=== PATIENT | female | born 1960 | race Caucasian/White ===

== ENCOUNTER 2022-05-17 14:13 | Inpatient (IN) ==
[2022-05-17] MEDS ORDERED: ASPIRIN CHEW 324 MG PO STA (14:33)
[2022-05-17] MEDS ORDERED: ALUMINUM/MAGNESIUM SUSP 30 ML UDC PO STA (14:36)
--- NOTE | 2022-05-17 14:36 | Emergency Department Note ---
Impression & Plan Acute non-ST elevation myocardial infarction (NSTEMI), Chest pain, Elevated troponin I level, Abnormal EKG ED Provider Note NAME: TRI SULLIVAN AGE: 61 SEX: F : 1960 ARRIVES VIA: Walk-In INFORMANT: Patient, ED PROVIDER(S): Joby Willoughby DO CHIEF COMPLAINT: Chest pain HPI: The patient is a 61-year-old female who presented to the emergency department for an evaluation of chest pain. The patient describes anterior chest pain which began yesterday. The patient noticed chest pain while she was walking. She states she might of been exerting herself somewhat but not overly. She states she thought initially it was reflux and she noticed the pressure in her chest. She had an episode of emesis. 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 She was told to follow-up with her primary care physician. She went to see her primary care physician today after she had another episode which was associated with exertion. She had an abnormal EKG and was advised to go to the emergency department for further evaluation. The patient denies having any swelling in her legs. She denies having any difficulty breathing. She has no chest pain at this time. She has no history of coronary artery disease or tobacco use. The patient states she last had pain at approximately 9:00 this morning. ROS: See above HPI for pertinent positives & negatives. A total of 10 systems reviewed and were otherwise negative. PAST MEDICAL HISTORY: See Below PAST SURGICAL HISTORY: See Below FAMILY HISTORY: See Below SOCIAL HISTORY: See Below HOME MEDICATIONS: See Below ALLERGIES: See Below VITALS: See Below PHYSICAL EXAMINATION: GENERAL: Patient is awake alert in no acute distress patient is resting comfortably and showing no signs of anxiety EYES: The conjunctivae are clear. The pupils are round and reactive. EARS, NOSE, MOUTH AND THROAT: The nose is without any evidence of any deformity. NECK: The neck is nontender and supple. RESPIRATORY: Normal respiratory effort is noted there is no evidence of wheezing rhonchi or rales CARDIOVASCULAR: Regular rate and rhythm noted there no murmurs rubs or gallops normal S1 normal S2. GASTROINTESTINAL: The abdomen is soft. Abdomen is nontender. MUSCULOSKELETAL/EXTREMITIES: There is no evidence of gross deformity full range of motion is noted in the hips and shoulders. SKIN: There is no obvious evidence of any rash. There are no petechiae, pallor or cyanosis noted. NEUROLOGIC: Patient is awake alert and oriented x3 MEDICAL DECISION MAKING: The patient is a 61-year-old female who has a no significant past medical history for coronary artery disease who presented to the emergency department for an evaluation of chest pain. The patient describes anterior chest pain which was exertional. She did have 1 episode this morning. She was seen initially at the school nurse while she was at work yesterday and then seen by her family doctor today. Given her symptoms she had an EKG done at the primary care physician's office. This was found to be abnormal and the patient was advised to come to the emergency department. In the emergency department the patient was treated with aspirin and Maalox. She was also started on heparin when her troponin was found to be elevated. EKG does appear to be consistent with ischemia with diffuse T wave inversions. She was not tachycardic or hypoxic. She had no shortness of breath. She was pain-free on my evaluation. I discussed her condition with the [facility] handkerchief cutter. An echocardiogram was ordered. I also discussed her case with the on-call [facility] hospitalist group. They have agreed to evaluate the patient in the emergency department for further management and disposition. Triage Nursing notes reviewed. Prior medical records reviewed Vital Signs: reviewed and remarkable for no significant abnormalities Differential diagnosis: Cardiac ischemia, aortic dissection, pulmonary embolism, pneumothorax, pneumonia, pericarditis, myocarditis, esophageal rupture, GERD, cholecystitis, pancreatitis, musculoskeletal, as well as other pathologies. ER treatment provided: See below Diagnostics interpreted by me: ECG: EKG was obtained in the emergency department. My interpretation is normal sinus rhythm at 83 bpm. There is no ectopy. Anterior Q waves with poor R wave progression was noted. Anterior and lateral T wave inversions were also appreciated. This was compared to a tracing from May 27, 1999. The anterior T wave inversion is new compared to the earlier tracing. The patient brought an EKG that was done in her primary care physician's office this afternoon. My interpretation is normal sinus rhythm at 99 bpm. There is no ectopy. There is no ST segment abnormalities noted. Similar poor R wave p rogression with T wave version was noted from the EKG obtained in the emergency department. Cardiac Monitoring: An order was placed for continuous cardiac monitoring. The monitor shows a rate of 87 bpm with sinus rhythm. Laboratory studies: As stated above and show below. Imaging studies: See below. Radiographic imaging was reviewed by myself Consultation(s): I discussed this case with Dr. Morel who is on-call for [facility] cardiology. I discussed this case with the [facility] hospitalist group. ED COURSE: Procedures: none Critical Care: I have personally spent greater than 45 minutes of critical care time in the direct management of this patient. This includes bedside care, interpretation of diagnostic studies, and testing, discussion with consultants, patient, and family members, and other required patient management activities. This 45 minutes is in excess of all separately billable procedures. Past Med/Surg History Medical History Hypothyroid Social History Smoking Status: Former smoker Preferred Language: [place] Feels Safe at Home: Yes Allergies Allergies Allergy/AdvReac Type Severity Reaction Status Date / Time No Known Allergies Allergy Verified 04/17/02 19:31 Results & Data (ED) Vital Signs Vital Signs - 24 hr 05/17/22 14:19 05/17/22 14:37 Temperature 36.6 C Temperature Source Temporal Artery Scan Pulse Rate 96 H 87 Respiratory Rate 18 Respiratory Depth Normal Blood Pressure 111/75 Blood Pressure Mean 87 Pulse Oximetry 97 Oxygen Delivery Method Room Air Sepsis Recent Fever Within 48 Hours No Sepsis New/Unexplained Change in Mental Status No Sepsis Action Taken by Nursing No Action Required Home Medications Current Medication List: was personally reviewed by me Laboratory Data Attestation: I reviewed the patient's lab results. 05/17/22 14:38 05/17/22 14:38 Lab Results 05/17/22 05/17/22 05/17/22 Range/Units 14:38 14:38 14:38 WBC 6.96 (4.8-10.8) K/ul RBC 4.41 (4.20-5.40) M/uL Hgb 14.4 (12.0-16.0) g/dl Hct 41.0 (37.0-47.0) % MCV 93.0 (80.0-100.0) fL MCH 32.7 (25.0-34.0) pg MCHC 35.1 (32.0-36.0) g/dL RDW Std Deviation 42.0 (36.4-46.3) fL RDW Coeff of Madi 12.1 (11.5-14.5) % Plt Count 355 (130-400) K/uL MPV 9.8 (9.4-12.4) fL Immature Gran % (Auto) 0.1 % Neut % (Auto) 49.6 % Lymph % (Auto) 39.8 % [place] % (Auto) 8.9 % Eos % (Auto) 1.0 % Baso % (Auto) 0.6 % Neut # (Auto) 3.45 (1.40-6.50) K/uL Lymph # (Auto) 2.77 (1.2-3.4) K/uL [place] # (Auto) 0.62 H (0.11-0.59) K/uL Eos # (Auto) 0.07 (0-0.50) K/uL Baso # (Auto) 0.04 (0-0.2) K/uL Immature Gran # (Auto) 0.01 (0.01-0.20) K/uL PT 10.6 (9.0-12.0) Seconds INR 1.0 (0.9-1.1) APTT 24.6 (21.0-31.0) Seconds PTT Ratio 0.9 Sodium 138 (136-145) mmol/L Potassium 3.8 (3.5-5.1) mmol/L Chloride 105 (98-107) mmol/L Carbon Dioxide 26 (21-32) mmol/L Anion Gap 7 (3-11) BUN 15 (6-23) mg/dl Creatinine 0.67 (0.6-1.2) mg/dl Est Cr Clr Drug Dosing 83.4 ml/min Est GFR ( Amer) 108.4 ml/min Est GFR (Non-Af Amer) 93.5 ml/min BUN/Creatinine Ratio 22.4 H (10-20) Glucose 86 (70-99(Fasting)) mg/dl Calcium 9.8 (8.5-10.1) mg/dl Total Bilirubin 0.6 (0.2-1.0) mg/dl AST 19 (13-39) U/L ALT 12 (7-52) U/L Alkaline Phosphatase 50 (34-104) U/L Troponin I High Sens 466.6 H* (0-14) pg/ml Total Protein 7.7 (6.0-8.3) gm/dl Albumin 4.5 (3.4-5.0) gm/dl Globulin 3.2 (2.5-4.0) gm/dl Albumin/Globulin Ratio 1.4 (0.9-2) Lipase 12 (11-82) U/L SARS-CoV-2, RNA, NAAT (NEGATIVE) 05/17/22 Range/Units 14:44 WBC (4.8-10.8) K/ul RBC (4.20-5.40) M/uL Hgb (12.0-16.0) g/dl Hct (37.0-47.0) % MCV (80.0-100.0) fL MCH (25.0-34.0) pg MCHC (32.0-36.0) g/dL RDW Std Deviation (36.4-46.3) fL RDW Coeff of Madi (11.5-14.5) % Plt Count (130-400) K/uL MPV (9.4-12.4) fL Immature Gran % (Auto) % Neut % (Auto) % Lymph % (Auto) % [place] % (Auto) % Eos % (Auto) % Baso % (Auto) % Neut # (Auto) (1.40-6.50) K/uL Lymph # (Auto) (1.2-3.4) K/uL [place] # (Auto) (0.11-0.59) K/uL Eos # (Auto) (0-0.50) K/uL Baso # (Auto) (0-0.2) K/uL Immature Gran # (Auto) (0.01-0.20) K/uL PT (9.0-12.0) Seconds INR (0.9-1.1) APTT (21.0-31.0) Seconds PTT Ratio Sodium (136-145) mmol/L Potassium (3.5-5.1) mmol/L Chloride (98-107) mmol/L Carbon Dioxide (21-32) mmol/L Anion Gap (3-11) BUN (6-23) mg/dl Creatinine (0.6-1.2) mg/dl Est Cr Clr Drug Dosing ml/min Est GFR ( Amer) ml/min Est GFR (Non-Af Amer) ml/min BUN/Creatinine Ratio (10-20) Glucose (70-99(Fasting)) mg/dl Calcium (8.5-10.1) mg/dl Total Bilirubin (0.2-1.0) mg/dl AST (13-39) U/L ALT (7-52) U/L Alkaline Phosphatase (34-104) U/L Troponin I High Sens (0-14) pg/ml Total Protein (6.0-8.3) gm/dl Albumin (3.4-5.0) gm/dl Globulin (2.5-4.0) gm/dl Albumin/Globulin Ratio (0.9-2) Lipase (11-82) U/L SARS-CoV-2, RNA, NAAT NEGATIVE (NEGATIVE) Administered Medications Discontinued Medications Al Hydrox/Mg Hydrox/Simethicone (Aluminum/Magnesium Susp 30 Ml Udc) 30 ml PO NOW STA Stop: 05/17/22 14:37 Last Admin: 05/17/22 14:41 Dose: 30 ml Documented By: SOPHIE Aspirin (Aspirin Chew 324 Mg) 324 mg PO NOW STA Stop: 05/17/22 14:34 Last Admin: 05/17/22 14:37 Dose: 324 mg Documented By: SOPHIE Imaging Data Attestation: I personally reviewed and interpreted this imaging study as follows: My Impression: 1 view chest x-ray was obtained in the emergency department. My interpretation is no free air, no definite filtrate final report pending. Radiologist's Impression: Chest X-Ray 05/17/22 14:33 SINGLE VIEW CHEST CLINICAL HISTORY: Atypical chest pain. FINDINGS: An AP, portable, upright chest radiograph is obtained. No prior studies are available for comparison at the time of dictation. The cardiomediastinal silhouette is top normal for projection noting atherosclerotic calcification of the thoracic aorta. Nonspecific interstitial thickening is likely chronic. There is bibasilar scarring/atelectasis. No airspace consolidation or large pleural effusion is identified. No pneumothorax is seen. The skeletal structures are osteopenic. The bony thorax is grossly intact. IMPRESSION: No acute cardiopulmonary abnormality. ACT 112: Negative or not required by law. Electronically signed by: Sebastien Harris M.D. 05/17/2022 2:59 PM Discharge Plan Visit Data Chief Complaint: Abnormal Labs/Diagnostic Testing Stated Complaint: ABNORMAL EKG ED Provider: Joby Willoughby Discharge Problem: Acute non-ST elevation myocardial infarction (NSTEMI), Chest pain, Elevated troponin I level, Abnormal EKG Patient Disposition: Being Evaluated by Hospitalist Forms Stand Alone Forms: [facility] Referrals Referrals: Kat Salas DO [Primary Care Provider] -
--- NOTE | 2022-05-17 15:00 | XRay Report ---
SINGLE VIEW CHEST CLINICAL HISTORY: Atypical chest pain. FINDINGS: An AP, portable, upright chest radiograph is obtained. No prior studies are available for c omparison at the time of dictation. The cardiomediastinal silhouette is top normal for projection not ing atherosclerotic calcification of the thoracic aorta. Nonspecific interstitial thickening is likel y chronic. There is bibasilar scarring/atelectasis. No airspace consolidation or large pleural effusi on is identified. No pneumothorax is seen. The skeletal structures are osteopenic. The bony thorax is grossly intact. IMPRESSION: No acute cardiopulmonary abnormality. ACT 112: Negative or not required by law. Electronically signed by: Sebastien Harris M.D. 05/17/2022 2:59 PM
[2022-05-17 15:13] LABS: Basophils # (auto) 0.04 K/uL (0-0.2); Basophils % (auto) 0.6 %; Eosinophils # (auto) 0.07 K/uL (0-0.50); Hemoglobin 14.4 g/dl (12.0-16.0); Immature Granulocytes # (auto) 0.01 K/uL (0.01-0.20); Immature Granulocytes % (auto) 0.1 %; Lymphocytes # (auto) 2.77 K/uL (1.2-3.4); Lymphocytes % (auto) 39.8 %; Mean Corpuscular Hemoglobin 32.7 pg (25.0-34.0); Mean Corpuscular Hgb Conc 35.1 g/dL (32.0-36.0); Mean Platelet Volume 9.8 fL (9.4-12.4); Monocytes # (auto) 0.62 K/uL (0.11-0.59); Monocytes % (auto) 8.9 %; Neutrophils # (auto) 3.45 K/uL (1.40-6.50); Neutrophils % (auto) 49.6 %; Platelet Count 355 K/uL (130-400); RDW Coefficient of Variation 12.1 % (11.5-14.5); Red Blood Count 4.41 M/uL (4.20-5.40); White Blood Count 6.96 K/ul (4.8-10.8)
[2022-05-17 15:21] LABS: Albumin Globulin Ratio 1.4 (0.9-2); Albumin Level 4.5 gm/dl (3.4-5.0); BUN Creatinine Ratio 22.4 (10-20); Bilirubin,Total 0.6 mg/dl (0.2-1.0); Calcium 9.8 mg/dl (8.5-10.1); Creatinine Clr Calc Pharmacy 83.4 ml/min; Est GFR (African American) 108.4 ml/min; Est GFR (Non-African American) 93.5 ml/min; Globulin 3.2 gm/dl (2.5-4.0); Potassium 3.8 mmol/L (3.5-5.1); Total Protein 7.7 gm/dl (6.0-8.3)
[2022-05-17 15:31] LABS: Partial Thromboplastin Ratio 0.9; Partial Thromboplastin Time 24.6 Seconds (21.0-31.0); Prothrombin Time 10.6 Seconds (9.0-12.0)
[2022-05-17] MEDS ORDERED: Heparin IV Adult Wt-Based Standard *NO* Bolus Protocol IV ONE (15:34)
[2022-05-17 15:36] LABS: Troponin I High Sensitivity 466.6 pg/ml (0-14)
[2022-05-17] MEDS ORDERED: Heparin IV Adult Wt-Based Standard *NO* Bolus Protocol IV SCH (15:45)
[2022-05-17] MEDS: HEPARIN SODIUM/DEXTROSE 25,000 UNITS/500 ML BAG IV SCH (15:57)
--- NOTE | 2022-05-17 16:10 | History & Physical Report ---
Date of Service May 17, 2022 Assessment & Plan (1) Acute non-ST elevation myocardial infarction (NSTEMI): Plan: Admitted on account of exertional chest pain/pressure which started a day prior to presentation Found to have some t wave changes of EKG. Trop was >466 BP stable Received aspirin and has been started on heparin by weight Will obtain 2 D ECHO cardiology on consult (2) Elevated troponin I level: Plan: Trop 466 Will trend Plan Admit to telemetarty Full code DVT Heparin History of Present Illness Chief Complaint: chest pain Primary Care Provider: Kat Salas DO Is a 61-year-old female with no signal past medical history who presents to the emergency department today for evaluation of chest pain. Patient said the chest pain started a day prior to presentation most central and happened while she was taking a walk. She describes it as more of a heaviness, nonradiating but associated with 1 episode of vomiting. Initially she attributed it to reflux which she gets quite often however when the pain recurred she went to see her PCP who then advised her to come to the hospital. Here in the emergency department, an EKG was done which showed some T wave changes and there was also a mild increase in serum troponin. Of note patient does not have any risk factors. She was started on IV heparin cardiology was consulted she will be admitted to the hospital for further investigation and further management. Allergies Allergy/AdvReac Type Severity Reaction Status Date / Time No Known Allergies Allergy Verified 04/17/02 19:31 Past Med/Surg History Medical History Hypothyroid Social History Smoking Status: Former smoker Preferred Language: Green[place]ic Feels Safe at Home: Yes Review of Systems Review of Systems: All systems reviewed are negative, apart from the ones contained in the history. Physical Exam Physical Exam: The patient is awake, alert and oriented 3, well developed and well nourished, normocephalic and atraumatic, lying in bed and in no acute distress. HEENT--PERRL, EOMI, mucous membranes and oropharynx mildly dry Neck--supple. No JVD. No bruits. Thyroid normal, trachea midline, no adenopathy. Heart--normal S1 and S2. No murmurs, rubs or gallops. Lungs--clear bilaterally, no respiratory distress, no accessory muscle use. Abdomen--normal bowel sounds and soft. Mild epigastric and left sided abdominal pain Extremities--no cyanosis or clubbing. No edema. Dermatologic--normal skin turgor, normal color, no abnormal lymph nodes, no rash. Neurologic--cranial nerves II through XII grossly intact. Rheumatologic--normal range of motion. Psychiatric--normal affect. Results & Data Results & Data Vital Signs (Past 12 Hours) Vital Signs Temp Pulse Pulse Resp BP BP Pulse Ox 05/17/22 16:02 89 20 98 05/17/22 15:56 88 20 132/88 98 05/17/22 14:37 87 05/17/22 14:19 97.9 F 96 H 18 111/75 97 O2 Del Method 05/17/22 16:02 Room Air 05/17/22 15:56 Room Air 05/17/22 14:37 05/17/22 14:19 Room Air PG Care Time/CCT Total # of Minutes Spent Total Time Spent with Patient: Total time spent is greater than 50% in coordination of care (as documented) at patient's floor/unit and/or counseling patient: Coding Level of Care Code 78245 INT INP/OBS CARE 3/75MIN Diagnoses Acute non-ST elevation myocardial infarction (NSTEMI) I21.4 Elevated troponin I level R77.8 Time Spent (min) 75
--- NOTE | 2022-05-17 18:57 | XCELERA ---
[id number]
[2022-05-17] MEDS ORDERED: ONDANSETRON INJ 2 MG/ML 2 ML VIAL IV PRN (19:39)
[2022-05-17] MEDS ORDERED: ACETAMINOPHEN 325 MG TAB PO PRN (19:39)
[2022-05-17 23:33] LABS: Partial Thromboplastin Ratio 1.4; Partial Thromboplastin Time 38.4 Seconds (21.0-31.0)
[2022-05-18 09:37] LABS: Partial Thromboplastin Ratio 1.6; Partial Thromboplastin Time 43.2 Seconds (21.0-31.0)
[2022-05-18] MEDS: HEPARIN SODIUM/DEXTROSE 25,000 UNITS/500 ML BAG IV SCH (12:27)
--- NOTE | 2022-05-18 14:33 | Cardiology Consultation ---
Date of Consultation May 18, 2022 Assessment & Plan (1) Acute non-ST elevation myocardial infarction (NSTEMI): (2) Cardiomyopathy: Plan ASSESSMENT/PLAN: 1. NSTEMI: Downtrending troponin on presentation. Late presentation for ND. Recommend cardiac catheterization. Risks and benefits discussed with her and her . They were made aware that CT surgery is not available at this facility. Agreeable to proceed when Equipment Inspector available. Cath is not urgent as she is free from angina. Start aspirin 81 mg daily. Received aspirin 325 mg yesterday. Start metoprolol succinate 25 mg daily. Start high intensity statin therapy. MAYNOR inhibitor likely tomorrow. On heparin drip. Recommend cardiac rehab. 2. Cardiomyopathy: Discussed echo findings. Start metoprolol succinate. Recommend MAYNOR I. Consider spironolactone. May repeat echo prior to discharge to evaluate for improvement. Consideration for LifeVest if EF < or = 35% before discharge. 3. Risk factor modification: Lipid profile ordered. 4. Disposition: Cardiology will continue to follow. Patient care communicated with primary hospitalist, Dr. Alford. Highly complex medical issues. Thank you for allowing me to participate in the care of your patient. Please call for any other questions or concerns. Sincerely, Ronn Morel M.D. History of Present Illness Reason for Consultation: chest pain Requesting Physician: Anjum Alford MD Attending Physician: Anjum Alford MD History of Present Illness Mrs. Magdaleno is a very pleasant 61-year-old female with a history significant for hypothyroidism. She was hospitalized on 05/17/2022 with NSTEMI. On 05/16/2022, she woke up at approximately 2 AM with a headache, and she has a history of migraines. When she eventually got up that morning, she took her dog outside and felt "reflux" along with a gaggy sensation and dry heaves. She developed tightness in her posterior neck. She then had bilateral chest discomfort feeling like her lungs "hurt" from cold air. She became diaphoretic but no shortness of breath. When she went to work, she went to the school nurse and her blood pressure was elevated with a systolic of 138 and diastolic in the 90-100 range. This is elevated for her. She called her PCP and went home. She had chest discomfort throughout the entire day but it had resolved by Sunday morning when she awakened. On 05/17/2022, she went to see her PCP and had an ECG which was abnormal and was sent to the emergency department. Chest discomfort had resolved however she now admits that she has had intermittent chest tightness lasting only 1 second occurring occasionally throughout the day. She recalls having a pressure in her chest for less than 15 seconds in March 2021. She described it as a "circular pain." She was seen acutely in the outpatient setting, but not her PCP. She recalls being told that the ECG was abnormal, suggesting prior ND however when she followed up with her PCP sometime later, the ECG was unremarkable per patient report. While here, she has not had any significant chest discomfort other than the occasional tightness lasting for no more than 1 second. She denies syncope, near syncope, edema, palpitations, or bleeding such as melena, hematochezia, or hematuria. She recalls having 5 days of increased "reflux" symptoms however states that it had been very food specific. She denies any exertional chest discomfort. She typically is active and walks approximately 9000 steps daily including stairs and has not noted any chest discomfort or shortness of breath leading up to her presentation. She admits that work has been emotionally stressful for her however preceding this hospitalization, she was on spring. She is supposed to be taking thyroid medication but has not taken any since September 2021. She has occasional lightheadedness/dizziness when standing up from a seated position or when reaching above her head. High-sensitivity troponin was elevated on presentation and has since trended downward. Review of systems: As above. Review of systems otherwise negative/unremarkable. Family history: Father had CABG at the age of 42 and at 63 yo, 3 or 4 days following aneurysm surgery. Social history: She quit smoking at the age of 32 after less than 1 pack/day. No significant alcohol. No drug abuse. She lives at home with her . Has 3 children (1 son and 2 daughters). 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 Her was present at the bedside. Allergies Allergy/AdvReac Type Severity Reaction Status Date / Time No Known Allergies Allergy Verified 05/17/22 16:39 Home Medications Medication Instructions Recorded Confirmed Type No Known Home Medications 05/17/22 05/17/22 History Patient History Medical History Hypothyroid Social History Smoking Status: Never smoker Hx Alcohol Use: No Hx Substance Use: No Preferred Language: Tunisian Communication Ability: Effective Signal Operator Technical Required: No Beliefs That Will Affect Care: None Current Living Situation: Spouse Current Living Situation Comment: home with Other Information That Helps Us Care for You: No Feels Safe at Home: Yes Safety Concerns: Feels Safe At This Time Assistive Devices: None Physical Exam Physical Exam: Gen.: No acute distress. Alert and oriented. HEENT: Anicteric sclera. Neck: No JVD. No bruits. Normal carotid upstrokes bilaterally. Cardiac: PMI was nondisplaced. No ventricular heave. Regular. Normal S1-S2. No murmurs, rubs, or gallops. Pulmonary: Clear to auscultation bilaterally without wheezes, rales, or rhonchi. Abdomen: Soft, nontender, nondistended, with normoactive bowel sounds. No bruits noted. Extremities: 2+ radial pulses bilaterally. 2+ posterior tibialis pulses bilaterally. No edema or cyanosis. Psychiatric: Affect appears appropriate. Results & Data Vital Signs (Past 12 Hours) Vital Signs Temp Pulse Pulse Resp BP Pulse Ox O2 Del Method 05/18/22 11:53 36.4 C L 77 14 113/70 96 Room Air 05/18/22 10:10 80 05/18/22 07:03 36.4 C L 88 14 110/74 95 Room Air 05/18/22 04:21 86 19 105/77 95 Room Air Laboratory Results Laboratory Results - last 24 hr 05/17/22 05/17/22 05/17/22 14:38 14:38 14:38 WBC 6.96 RBC 4.41 Hgb 14.4 Hct 41.0 MCV 93.0 MCH 32.7 MCHC 35.1 RDW Std Deviation 42.0 RDW Coeff of Madi 12.1 Plt Count 355 MPV 9.8 Immature Gran % (Auto) 0.1 Neut % (Auto) 49.6 Lymph % (Auto) 39.8 [place] % (Auto) 8.9 Eos % (Auto) 1.0 Baso % (Auto) 0.6 Neut # (Auto) 3.45 Lymph # (Auto) 2.77 [place] # (Auto) 0.62 H Eos # (Auto) 0.07 Baso # (Auto) 0.04 Immature Gran # (Auto) 0.01 PT 10.6 INR 1.0 APTT 24.6 PTT Ratio 0.9 Sodium 138 Potassium 3.8 Chloride 105 Carbon Dioxide 26 Anion Gap 7 BUN 15 Creatinine 0.67 Est Cr Clr Drug Dosing 83.4 Est GFR ( Amer) 108.4 Est GFR (Non-Af Amer) 93.5 BUN/Creatinine Ratio 22.4 H Glucose 86 Calcium 9.8 Total Bilirubin 0.6 AST 19 ALT 12 Alkaline Phosphatase 50 Troponin I High Sens 466.6 H* Total Protein 7.7 Albumin 4.5 Globulin 3.2 Albumin/Globulin Ratio 1.4 Lipase 12 SARS-CoV-2, RNA, NAAT 05/17/22 05/17/22 05/17/22 14:44 18:20 22:19 WBC RBC Hgb Hct MCV MCH MCHC RDW Std Deviation RDW Coeff of Madi Plt Count MPV Immature Gran % (Auto) Neut % (Auto) Lymph % (Auto) [place] % (Auto) Eos % (Auto) Baso % (Auto) Neut # (Auto) Lymph # (Auto) [place] # (Auto) Eos # (Auto) Baso # (Auto) Immature Gran # (Auto) PT INR APTT 38.4 H PTT Ratio 1.4 Sodium Potassium Chloride Carbon Dioxide Anion Gap BUN Creatinine Est Cr Clr Drug Dosing Est GFR ( Amer) Est GFR (Non-Af Amer) BUN/Creatinine Ratio Glucose Calcium Total Bilirubin AST ALT Alkaline Phosphatase Troponin I High Sens 413.5 H* Total Protein Albumin Globulin Albumin/Globulin Ratio Lipase SARS-CoV-2, RNA, NAAT NEGATIVE 05/18/22 08:05 WBC RBC Hgb Hct MCV MCH MCHC RDW Std Deviation RDW Coeff of Madi Plt Count MPV Immature Gran % (Auto) Neut % (Auto) Lymph % (Auto) [place] % (Auto) Eos % (Auto) Baso % (Auto) Neut # (Auto) Lymph # (Auto) [place] # (Auto) Eos # (Auto) Baso # (Auto) Immature Gran # (Auto) PT INR APTT 43.2 H PTT Ratio 1.6 Sodium Potassium Chloride Carbon Dioxide Anion Gap BUN Creatinine Est Cr Clr Drug Dosing Est GFR ( Amer) Est GFR (Non-Af Amer) BUN/Creatinine Ratio Glucose Calcium Total Bilirubin AST ALT Alkaline Phosphatase Troponin I High Sens Total Protein Albumin Globulin Albumin/Globulin Ratio Lipase SARS-CoV-2, RNA, NAAT Diagnostic Findings Telemetry personally reviewed: Sinus rhythm. No arrhythmia. Echo 05/18/2022: Normal LV size. EF 35%. Large LAD wall motion abnormality (akinetic apex, mid anteroseptum, and mid inferoseptum with hypokinesis of the mid anterior, mid anterolateral, and mid inferolateral quiros). Severe asymmetric hypertrophy involving the basal anteroseptum with otherwise mild concentric LVH. Mild MR. Normal RVSP. ECG personally reviewed 05/17/2022 at 1429: Sinus rhythm 83 bpm. Possible inferior infarct. Possible anterior infarct. Anterior and lateral T wave inversions. ECG from 05/27/1999 personally reviewed: Sinus rhythm 68 bpm. No evidence of anterior or inferior infarct. T wave inversion present in V2 and V3, but overall much less pronounced in the anterior leads compared to current ECG. Chest x-ray 05/17/2022: No acute cardiopulmonary abnormality. History and physical reviewed. Labs personally reviewed: High-sensitivity troponin initially 466 and trending down to 413. Renal function normal. Medications Administered Current Inpatient Medications Acetaminophen (Acetaminophen 325 Mg Tab) 650 mg PO Q4H PRN PRN Reason: Pain or Fever Stop: 06/16/22 19:38 Heparin Sodium/Dextrose (Heparin Sodium/Dextrose) 25,000 units in 500 mls @ 24 mls/hr IV .[id number] [facility]; Protocol Stop: 06/16/22 15:59 Last Admin: 05/18/22 12:27 Dose: 1,200 units/hr, 24 mls/hr Ondansetron HCl (Ondansetron Inj 2 Mg/Ml 2 Ml Vial) 4 mg IV Q6H PRN PRN Reason: Nausea Stop: 06/16/22 19:38 PG Care Time/CCT Total # of Minutes Spent Total Time Spent with Patient: Total time spent is greater than 50% in coordination of care (as documented) at patient's floor/unit and/or counseling patient: Coding Level of Care Code 84987 IN/OBS CONSULT LVL 5,80M Diagnoses Acute non-ST elevation myocardial infarction (NSTEMI) I21.4 Cardiomyopathy I42.9
--- NOTE | 2022-05-18 14:55 | Hospitalist Progress Note ---
Date of Service May 18, 2022 Assessment & Plan (1) Acute non-ST elevation myocardial infarction (NSTEMI): Plan: Admitted on account of exertional chest pain/pressure which started a day prior to presentation Found to have some t wave changes of EKG. Trop was >466 BP stable Received aspirin and has been started on heparin by weight 2 D ECHO shows anterior wall motion abnormality, EF 35% -Plan is cardiac cath by cardiology (2) Elevated troponin I level: Plan: Trop 466 on admission, trending down Continue heparin by weight plan is for cath Plan [facility] Full code DVT Heparin Admission and Anticipated Discharge Date Admission Date: May 17, 2022 Subjective patient seen and examined, by the bed side, no new chest pains Review of Systems Review of Systems: All systems reviewed are negative, apart from the ones contained in the history. Physical Exam Physical Exam: The patient is awake, alert and oriented 3, well developed and well nourished, normocephalic and atraumatic, lying in bed and in no acute distress. HEENT--PERRL, EOMI, mucous membranes and oropharynx mildly dry Neck--supple. No JVD. No bruits. Thyroid normal, trachea midline, no adenopathy. Heart--normal S1 and S2. No murmurs, rubs or gallops. Lungs--clear bilaterally, no respiratory distress, no accessory muscle use. Abdomen--normal bowel sounds and soft. Mild epigastric and left sided abdominal pain Extremities--no cyanosis or clubbing. No edema. Dermatologic--normal skin turgor, normal color, no abnormal lymph nodes, no rash. Neurologic--cranial nerves II through XII grossly intact. Rheumatologic--normal range of motion. Psychiatric--normal affect. Results & Data Results & Data Vital Signs (Past 12 Hours) Vital Signs Temp Pulse Pulse Resp BP Pulse Ox O2 Del Method 05/18/22 11:53 97.5 F L 77 14 113/70 96 Room Air 05/18/22 10:10 80 05/18/22 07:03 97.5 F L 88 14 110/74 95 Room Air 05/18/22 04:21 86 19 105/77 95 Room Air PG Care Time/CCT Total # of Minutes Spent Total Time Spent with Patient: Total time spent is greater than 50% in coordination of care (as documented) at patient's floor/unit and/or counseling patient: Coding Level of Care Code 12204 SUB INP/OBS CARE 235MIN Diagnoses Acute non-ST elevation myocardial infarction (NSTEMI) I21.4 Elevated troponin I level R77.8 Time Spent (min) 35
[2022-05-18] MEDS ORDERED: ASPIRIN 325 MG ECTAB PO SCH (15:00)
[2022-05-18] MEDS ORDERED: ASPIRIN 81 MG CHEW ONE (15:06)
[2022-05-18] MEDS ORDERED: NITROGLYCERIN/D5W 100MCG/ML 20ML SYR ONE (15:22)
[2022-05-18] MEDS ORDERED: fentaNYL citrate PF 100 MCG/2 ML VIAL ONE (15:22)
[2022-05-18] MEDS ORDERED: HEPARIN (PORCINE) 1000 UNIT/ML 10 ML (CATH LAB USE ONLY) ONE (15:22)
[2022-05-18] MEDS ORDERED: niCARdipine HCL INJ 2.5 MG/ML 10 ML AMP ONE (15:22)
[2022-05-18] MEDS ORDERED: MIDAZOLAM HCL 1 MG/ML 2ML VIAL ONE (15:22)
[2022-05-18 15:35] LABS: Calcium 9.4 mg/dl (8.5-10.1); Chol HDL Ratio 4.4 (0-5); Creatinine Clr Calc Pharmacy 89.8 ml/min; Est GFR (African American) 111.2 ml/min; Potassium 4.1 mmol/L (3.5-5.1)
[2022-05-18] MEDS: ASPIRIN 81 MG ECTAB PO SCH (15:50)
--- NOTE | 2022-05-18 15:54 | Pre Anesthesia Assessment ---
Date of Service May 18, 2022 Pre Sedation Assessment Vital Signs Temp Pulse Pulse Resp BP BP Pulse Ox 05/18/22 15:23 80 05/18/22 14:57 69 16 119/74 98 05/18/22 11:53 36.4 C L 77 14 113/70 96 05/18/22 10:10 80 05/18/22 07:03 36.4 C L 88 14 110/74 95 05/18/22 04:21 86 19 105/77 95 05/17/22 23:41 81 05/17/22 19:54 37.1 C 84 16 128/91 96 05/17/22 19:39 37.1 C 84 16 128/91 96 05/17/22 19:39 05/17/22 18:46 90 18 126/84 97 05/17/22 18:38 94 H 18 126/84 96 05/17/22 18:31 92 H 05/17/22 17:50 87 18 101/75 98 05/17/22 17:00 117/74 05/17/22 17:00 78 20 96 05/17/22 16:44 84 18 115/72 97 05/17/22 16:02 89 20 98 05/17/22 15:56 88 20 132/88 98 Pulse Ox O2 Del Method O2 Del Method 05/18/22 15:23 05/18/22 14:57 Room Air 05/18/22 11:53 Room Air 05/18/22 10:10 05/18/22 07:03 Room Air 05/18/22 04:21 Room Air 05/17/22 23:41 05/17/22 19:54 Room Air 05/17/22 19:39 Room Air 05/17/22 19:39 96 Room Air 05/17/22 18:46 Room Air 05/17/22 18:38 Room Air 05/17/22 18:31 05/17/22 17:50 Room Air 05/17/22 17:00 05/17/22 17:00 05/17/22 16:44 Room Air 05/17/22 16:02 Room Air 05/17/22 15:56 Room Air Cardiovascular RRR, no murmur, no edema Respiratory normal respiratory effort, lungs clear to auscultation Pre-Sedation Airway Assessment Smoking Status: Never smoker Hx Sleep Apnea: No Short, Thick Neck: No Thyromental Distance: > or= 3.5 Finger Breadths Oral Cavity: + WNL Mallampati Class: II ASA: ASA3 NPO Status Date of Last Intake of Fluids: 05/17/22 Time of Last Intake of Fluids: 22:00 Date of Last Intake of Solid Food: 05/17/22 Time of Last Intake of Solid Foods: 22:00 Procedure Planning Contraindications for Sedation: none Current Medications Reviewed: Yes Notes The planned sedation has been discussed with the patient. Informed Consent was obtained. I have identified the patient, determined the appropriateness of sedation and have assessed the patient immediately prior to the procedure. All medicine(s) and interventions are by my order.
--- NOTE | 2022-05-18 16:03 | Cardiac Catheterization ---
[facility] Data: [place] Cardiac Status Clinical evaluation leading to the procedure CAD Presenation: Stable angina Anginal Classification: CCS IV Heart Failure: No Cardiogenic Shock within 24 Hours: No Cardiac Arrest within 24 Hours: No Imaging Studies Past 6 Months: Yes Stress Studies Past 6 Months: No Coronary Anatomy Dominant: Right Diagnostic Physicians Name: Tariq Morel MD Status: Elective Closure Device Percutaneous Entry Location: Radial Closure Device: Radial Band Recommendations: Management Recommendatons Cardiac Cath Procedure Full Procedure Date May 18, 2022 Pre-Procedure Diagnosis Pre-Procedure Diagnosis: Non STEMI and Cardiomyopathy AUC Score AUC Score: 9 Post-Procedure Diagnosis Post-Procedure Diagnosis: Mild CAD and Normal Intracardiac Pressures Procedure(s) Performed Procedure(s) Performed: Coronary Angiography and Left Heart Cath Photo Stylist Tariq Morel MD Physical Medicine Specialist(s) Raymon Estimated Blood Loss Estimated Blood Loss: < 25 ml Medication(s) Medication(s): Fentanyl, Heparin, Lidocaine 1%, Nicardipine and Versed Summary of Findings Procedures: 1. Coronary angiography 2. Left heart catheterization 3. Moderate sedation Indication: 61-year-old female presented with downtrending troponin levels which were elevated, and chest discomfort the day prior to presentation. LV systolic function was moderately reduced and ECG was abnormal, suggesting infarct. Cardiac catheterization recommended. Coronary angiography: 1. Left main: Long vessel. No significant CAD. 2. Left anterior descending: LAD wraps around the apex. Mid LAD 20%. Large D1 without significant CAD. 3. Circumflex: No significant CAD within the circumflex, OM1 or OM 2 vessels. 4. Right coronary artery: RCA is large and dominant. Luminal irregularities within the proximal and mid RCA. PDA and PL without significant CAD. 5. Ramus intermedius: No significant CAD. Left heart catheterization: 1. Left ventriculography was not performed. 2. No significant aortic stenosis. 3. Normal LVEDP; 7 mmHg. Moderate sedation: 1. Sedation start time: 3:37 PM 2. Sedation end time: 3:50 PM Access: 1. Right radial artery was accessed without complication. Impression: 1. Minimal nonobstructive CAD. 2. Normal left-sided filling pressure. 3. No aortic stenosis. 4. Nonischemic cardiomyopathy. Plan: 1. Optimize medical therapy. 2. Risk factor modification. Hemodynamics Rest Ao:: 102/59 Final Ao: 107/60 LV: 103/0/7 Recommendations Recommendations: Management Recommendatons Specimens Specimens: None Radiation Exposure (mGy) 332 mGy. Fluoro time 1.7 min. Contrast (mls) 35 ml Procedural Complication(s) None Disposition PCU I attest to the content of the Intraoperative Record and any orders documented therein. Any exceptions are noted below. [facility] Card Cath Procedure Codes Cardiac Catheterization Procedure 1: Cardiovascular Cath Procedures: 94431 Coronaries and LHC (+/-LV) Moderate Sedation Procedure 1: Sedation/Anesthesia: 13480 Mod Sedation by the same physician;Init15 Min Child Age 5 & Up Procedure 3: Sedation/Anesthesia: 60969 Mod Sedation by the same physician; Ea [id number] Minutes PG Care Time/CCT Total # of Minutes Spent Total Time Spent with Patient: Total time spent is greater than 50% in coordination of care (as documented) at patient's floor/unit and/or counseling patient:
--- NOTE | 2022-05-18 16:04 | Post Anesthesia Assessment ---
Date of Service May 18, 2022 Post Sedation Assessment Vital Signs Temp Pulse Pulse Resp BP BP Pulse Ox 05/18/22 16:00 94 H 18 130/92 98 05/18/22 15:23 80 05/18/22 14:57 69 16 119/74 98 05/18/22 11:53 36.4 C L 77 14 113/70 96 05/18/22 10:10 80 05/18/22 07:03 36.4 C L 88 14 110/74 95 05/18/22 04:21 86 19 105/77 95 05/17/22 23:41 81 05/17/22 19:54 37.1 C 84 16 128/91 96 05/17/22 19:39 37.1 C 84 16 128/91 96 05/17/22 19:39 05/17/22 18:46 90 18 126/84 97 05/17/22 18:38 94 H 18 126/84 96 05/17/22 18:31 92 H 05/17/22 17:50 87 18 101/75 98 05/17/22 17:00 117/74 05/17/22 17:00 78 20 96 05/17/22 16:44 84 18 115/72 97 Pulse Ox O2 Del Method O2 Del Method 05/18/22 16:00 Room Air 05/18/22 15:23 05/18/22 14:57 Room Air 05/18/22 11:53 Room Air 05/18/22 10:10 05/18/22 07:03 Room Air 05/18/22 04:21 Room Air 05/17/22 23:41 05/17/22 19:54 Room Air 05/17/22 19:39 Room Air 05/17/22 19:39 96 Room Air 05/17/22 18:46 Room Air 05/17/22 18:38 Room Air 05/17/22 18:31 05/17/22 17:50 Room Air 05/17/22 17:00 05/17/22 17:00 05/17/22 16:44 Room Air Recovery Score Activity: Moves 4 extremities Respiration: Deep Breath/Cough Circulation: +/-20% PreAnes Value Consciousness: Fully Awake Oxygen Saturation: > 92% On Room Air Discharge Sedation Level of Care: Fast Track Phase II Post Sedation Plan On clinical assessment, the patient appears to have tolerated the sedation without complications. Patient is recovering as anticipated. Patient will continue to be monitored by nursing and may be discharged when sedation discharge criteria are met per below protocol. Upon Completions of procedure up to 15 minutes continue every 5 minute vital signs and the P.A.R. score; then discharge to a Phase I or Fast Track to Phase II per the following guidelines: * Discharge Patient to appropriate Phase II area if PAR is 8 or greater or return to pre- procedure baseline. The post - procedure orders will be as directed. * If PAR score is less than 8 or not return to pre-procedure baseline then patient will follow Phase I monitoring till PAR is reached for Phase II. The Phase I may be done in procedure room or may call to secure a Phase I area. * If naloxone or flumazenil are used for reversal, hold in Phase I for continued monitoring from when last reversal dose was given for a minimum of 60 minutes or longer pending the nurse and/or physician discretion of patient condition before discharge to Phase II. Please call the Sedation Physician to re-evaluate and complete post-note for discharge to Phase II area. Do NOT discharge from procedure sedation or Phase 1 until post- sedation evaluation note is complete by procedure /sedation MD Sedation Discharge Instructions to be given to the patient at discharge to home.
[2022-05-18] MEDS ORDERED: SODIUM CHLORIDE 0.9% 1000ML 1,000 ML IV SCH (16:15)
[2022-05-18] MEDS: METOPROLOL SUCC 25MG EXT REL TAB PO SCH (16:47)
[2022-05-18] MEDS ORDERED: ATORVASTATIN 40 MG TAB PO SCH (21:00)
[2022-05-19 06:50] LABS: Hematocrit (blood only) 36.9 % (37.0-47.0); Hemoglobin 12.8 g/dl (12.0-16.0); Mean Corpuscular Hemoglobin 32.2 pg (25.0-34.0); Mean Corpuscular Hgb Conc 34.7 g/dL (32.0-36.0); Mean Corpuscular Volume 92.9 fL (80.0-100.0); Mean Platelet Volume 9.7 fL (9.4-12.4); Platelet Count 325 K/uL (130-400); RDW Coefficient of Variation 11.9 % (11.5-14.5); RDW Standard Deviation 41.1 fL (36.4-46.3); Red Blood Count 3.97 M/uL (4.20-5.40); White Blood Count 5.07 K/ul (4.8-10.8)
[2022-05-19 07:03] LABS: BUN Creatinine Ratio 25.5 (10-20); Est GFR (African American) 115.7 ml/min; Est GFR (Non-African American) 99.8 ml/min; Potassium 4.3 mmol/L (3.5-5.1)
[2022-05-19] MEDS ORDERED: lisinopril 2.5 MG TAB PO SCH (09:00)
[2022-05-19] MEDS ORDERED: ASPIRIN 81 MG ECTAB PO SCH (09:00)
[2022-05-19] MEDS ORDERED: HEPARIN SOD 5,000 UNIT/0.5 ML VIAL SQ SCH (09:00)
[2022-05-19] MEDS: ASPIRIN 81 MG ECTAB PO SCH (09:28)
[2022-05-19] MEDS: METOPROLOL SUCC 25MG EXT REL TAB PO SCH (09:29)
--- NOTE | 2022-05-19 11:22 | Cardiology Progress Note ---
Date of Service May 19, 2022 Assessment & Plan (1) Takotsubo cardiomyopathy: (2) CAD (coronary artery disease): Plan ASSESSMENT/PLAN: 1. Takotsubo cardiomyopathy: Given her significant stressors recently and wall motion distribution in the absence of significant coronary disease, presentation now more consistent with Takotsubo cardiomyopathy. Discussed the diagnosis. Limited echo was ordered today and demonstrated improved wall motion and LV systolic function. Continue metoprolol succinate and low-dose MAYNOR inhibitor. Low-sodium diet. We will repeat limited echo in the outpatient setting. Cardiac rehabilitation recommended and she is agreeable. 2. CAD: Mild nonobstructive CAD. No angina. Continue low-dose aspirin 81 mg daily. Continue high intensity statin therapy. Beta-laith. 3. Disposition: Follow-up in the outpatient cardiology office in 1 to 2 weeks. Patient can be discharged from a cardiac perspective. Patient care communicated with primary hospitalist, Dr. Alford. Admission and Anticipated Discharge Date Admission Date: May 17, 2022 Subjective Patient was seen earlier today. No further chest pain. Denies shortness of breath. Denies syncope, near syncope, palpitations, edema, or bleeding. No issues from her cardiac cath access site. Her was present at the bedside. Physical Exam Physical Exam: Gen.: No acute distress. Alert and oriented. HEENT: Anicteric sclera. Neck: No JVD. Cardiac: No ventricular heave. Regular. Normal S1-S2. No murmurs, rubs, or gallops. Pulmonary: Clear to auscultation bilaterally without wheezes, rales, or rhonchi. Abdomen: Soft, nontender, nondistended, with normoactive bowel sounds. No bruits noted. Extremities: 2+ radial pulses bilaterally. Right radial cath site without erythema, discharge, or hematoma. 2+ posterior tibialis pulses bilaterally. No edema or cyanosis. Psychiatric: Affect appears appropriate. Results & Data Vital Signs (Past 12 Hours) Vital Signs Temp Pulse Pulse Resp BP Pulse Ox O2 Del Method 05/19/22 08:30 36.6 C 84 16 113/74 97 Room Air 05/19/22 04:21 36.6 C 64 18 105/63 94 Room Air 05/19/22 00:02 36.6 C 77 18 118/71 94 Room Air 05/18/22 23:39 75 Laboratory Results Laboratory Results - last 24 hr 05/18/22 05/18/22 05/19/22 08:09 15:43 06:28 WBC 5.07 RBC 3.97 L Hgb 12.8 Hct 36.9 L MCV 92.9 MCH 32.2 MCHC 34.7 RDW Std Deviation 41.1 RDW Coeff of Madi 11.9 Plt Count 325 MPV 9.7 Activ Coag Time Kaolin 143 H Sodium 138 Potassium 4.1 Chloride 107 Carbon Dioxide 25 Anion Gap 6 BUN 13 Creatinine 0.62 Est Cr Clr Drug Dosing 89.8 Est GFR ( Amer) 111.2 Est GFR (Non-Af Amer) 96.0 BUN/Creatinine Ratio 21.0 H Glucose 99 Calcium 9.4 Triglycerides 117 Cholesterol 280 H LDL Cholesterol, Calc 194 VLDL Cholesterol, Calc 23 HDL Cholesterol 63 Cholesterol/HDL Ratio 4.4 05/19/22 06:28 WBC RBC Hgb Hct MCV MCH MCHC RDW Std Deviation RDW Coeff of Madi Plt Count MPV Activ Coag Time Kaolin Sodium 138 Potassium 4.3 Chloride 110 H Carbon Dioxide 23 Anion Gap 5 BUN 14 Creatinine 0.55 L Est Cr Clr Drug Dosing 102.0 Est GFR ( Amer) 115.7 Est GFR (Non-Af Amer) 99.8 BUN/Creatinine Ratio 25.5 H Glucose 95 Calcium 9.0 Triglycerides Cholesterol LDL Cholesterol, Calc VLDL Cholesterol, Calc HDL Cholesterol Cholesterol/HDL Ratio Diagnostic Findings Telemetry personally reviewed: Sinus rhythm. No arrhythmia. Labs reviewed: Stable renal function. Limited echo 05/19/2022: Mildly reduced LV systolic function. EF 45% Cardiac cath 05/18/22: Coronary angiography: 1. Left main: Long vessel. No significant CAD. 2. Left anterior descending: LAD wraps around the apex. Mid LAD 20%. Large D1 without significant CAD. 3. Circumflex: No significant CAD within the circumflex, OM1 or OM 2 vessels. 4. Right coronary artery: RCA is large and dominant. Luminal irregularities within the proximal and mid RCA. PDA and PL without significant CAD. 5. Ramus intermedius: No significant CAD. Left heart catheterization: 1. Left ventriculography was not performed. 2. No significant aortic stenosis. 3. Normal LVEDP; 7 mmHg. Medications Administered Current Inpatient Medications Acetaminophen (Acetaminophen 325 Mg Tab) 650 mg PO Q4H PRN PRN Reason: Pain or Fever Stop: 06/16/22 19:38 Aspirin (Aspirin 81 Mg Ectab) 81 mg PO QAM [facility] Stop: 06/17/22 14:49 Last Admin: 05/19/22 09:28 Dose: 81 mg Atorvastatin Calcium (Atorvastatin 40 Mg Tab) 40 mg PO HS [facility] Stop: 06/17/22 20:59 Last Admin: 05/18/22 20:18 Dose: 40 mg Heparin Sodium (Porcine) (Heparin Sod 5,000 Unit/0.5 Ml Vial) 5,000 units SQ Q12 [facility] Stop: 06/18/22 08:59 Last Admin: 05/19/22 09:29 Dose: 5,000 units Lisinopril (Lisinopril 2.5 Mg Tab) 2.5 mg PO [facility] Stop: 06/18/22 08:59 Last Admin: 05/19/22 09:29 Dose: 2.5 mg Metoprolol Succinate (Metoprolol Succ 25mg Ext Rel Tab) 25 mg PO [facility] Stop: 06/17/22 14:59 Last Admin: 05/19/22 09:29 Dose: 25 mg Ondansetron HCl (Ondansetron Inj 2 Mg/Ml 2 Ml Vial) 4 mg IV Q6H PRN PRN Reason: Nausea Stop: 06/16/22 19:38 PG Care Time/CCT Total # of Minutes Spent Total Time Spent with Patient: Total time spent is greater than 50% in coordination of care (as documented) at patient's floor/unit and/or counseling patient: Coding Level of Care Code 34564 SUB INP/OBS CARE 2/35MIN Diagnoses Takotsubo cardiomyopathy I51.81 CAD (coronary artery disease) I25.10
--- NOTE | 2022-05-19 11:57 | Hospitalist Progress Note ---
Date of Service May 19, 2022 Assessment & Plan (1) Acute non-ST elevation myocardial infarction (NSTEMI): Plan: Admitted on account of exertional chest pain/pressure which started a day prior to presentation Found to have some t wave changes of EKG. Trop was >466 on admission 2 D ECHO shows anterior wall motion abnormality, EF 35% She is now s/p cardiac cath which showed clean coronaries (2) Cardiomyopathy: Plan: Non ischemic cardiomyopathy EF 35% on ECHO, cardiac cath showed clean coronaries Patient may need beta laith, MAYNOR I, maybe spironolactone Repeat ECHO today to see if she will need lifevest Appreciate cardiology (3) Elevated troponin I level: Plan: see 1 Plan hopefully d/c soon Full code DVT Heparin Admission and Anticipated Discharge Date Admission Date: May 17, 2022 Subjective patient seen and examined, by the bed side, no new chest pains Review of Systems Review of Systems: All systems reviewed are negative, apart from the ones contained in the history. Physical Exam Physical Exam: The patient is awake, alert and oriented 3, well developed and well nourished, normocephalic and atraumatic, lying in bed and in no acute distress. HEENT--PERRL, EOMI, mucous membranes and oropharynx mildly dry Neck--supple. No JVD. No bruits. Thyroid normal, trachea midline, no adenopathy. Heart--normal S1 and S2. No murmurs, rubs or gallops. Lungs--clear bilaterally, no respiratory distress, no accessory muscle use. Abdomen--normal bowel sounds and soft. Mild epigastric and left sided abdominal pain Extremities--no cyanosis or clubbing. No edema. Dermatologic--normal skin turgor, normal color, no abnormal lymph nodes, no rash. Neurologic--cranial nerves II through XII grossly intact. Rheumatologic--normal range of motion. Psychiatric--normal affect. Results & Data Results & Data Vital Signs (Past 12 Hours) Vital Signs Temp Pulse Resp BP Pulse Ox O2 Del Method 05/19/22 08:30 97.9 F 84 16 113/74 97 Room Air 05/19/22 04:21 97.9 F 64 18 105/63 94 Room Air 05/19/22 00:02 97.9 F 77 18 118/71 94 Room Air PG Care Time/CCT Total # of Minutes Spent Total Time Spent with Patient: Total time spent is greater than 50% in coordination of care (as documented) at patient's floor/unit and/or counseling patient: Coding Level of Care Code 45111 SUB INP/OBS CARE 2/35MIN Diagnoses Acute non-ST elevation myocardial infarction (NSTEMI) I21.4 Cardiomyopathy I42.9 Elevated troponin I level R77.8 Time Spent (min) 35
--- NOTE | 2022-05-19 12:33 | Discharge Summary ---
Date of Service May 19, 2022 Admission HPI Per Admitting Provider Is a 61-year-old female with no signal past medical history who presents to the emergency department today for evaluation of chest pain. Patient said the chest pain started a day prior to presentation most central and happened while she was taking a walk. She describes it as more of a heaviness, nonradiating but associated with 1 episode of vomiting. Initially she attributed it to reflux which she gets quite often however when the pain recurred she went to see her PCP who then advised her to come to the hospital. Here in the emergency department, an EKG was done which showed some T wave changes and there was also a mild increase in serum troponin. Of note patient does not have any risk factors. She was started on IV heparin cardiology was consulted she will be admitted to the hospital for further investigation and further management. Principal Diagnosis Non ischemic cardiomyopathy Discharge Exam The patient is awake, alert and oriented 3, well developed and well nourished, normocephalic and atraumatic, lying in bed and in no acute distress. HEENT--PERRL, EOMI, mucous membranes and oropharynx mildly dry Neck--supple. No JVD. No bruits. Thyroid normal, trachea midline, no adenopathy. Heart--normal S1 and S2. No murmurs, rubs or gallops. Lungs--clear bilaterally, no respiratory distress, no accessory muscle use. Abdomen--normal bowel sounds and soft. Mild epigastric and left sided abdominal pain Extremities--no cyanosis or clubbing. No edema. Dermatologic--normal skin turgor, normal color, no abnormal lymph nodes, no rash. Neurologic--cranial nerves II through XII grossly intact. Rheumatologic--normal range of motion. Psychiatric--normal affect. Discharge Data Allergies Allergy/AdvReac Type Severity Reaction Status Date / Time No Known Allergies Allergy Verified 05/17/22 16:39 Consultations 05/17/22 15:38 ED Decision to Admit Stat 05/17/22 19:39 Consult Cardiology Routine 05/18/22 16:03 Consult Cardiac Rehabilitation Routine Procedures Performed Operation Date: 05/18/22 15:00 Actual Procedures s Cineradiography w/Routine Exam - Tariq Morel MD p Cath, Left with Cors and Vent - Tariq Morel MD Ordered Studies 05/18/22 13:14 CL Cath Imgs for PACS use only Routine Hospital Course (1) Acute non-ST elevation myocardial infarction (NSTEMI): Admitted on account of exertional chest pain/pressure which started a day prior to presentation Found to have some t wave changes of EKG. Trop was >466 on admission 2 D ECHO shows anterior wall motion abnormality, EF 35% She is now s/p cardiac cath which showed clean coronaries (2) Cardiomyopathy: Non ischemic cardiomyopathy EF 35% on ECHO, cardiac cath showed clean coronaries Patient may need beta laith, MAYNOR I, maybe spironolactone Repeat ECHO today to see if she will need lifevest Appreciate cardiology (3) Elevated troponin I level: see 1 Plan d/c today. Follow up with cardiology on 05/31 Full code DVT Heparin Total Time Total Time Spent Total Time Spent (In Minutes): 35 Discharge Plan Discharge Items Patient Disposition: Home - Self-Care Reason For Visit: chest pain Discharge Diagnosis: Non ischemic cardiomyopathy Activity: Per Instructions section Non-emergency contact: Primary Care Provider and Litigation Counsel Call non-emergency contact if: you have any medication questions and your symptoms worsen Follow-up/Referrals: Tariq Morel MD [Physician] - 05/31/22 8:45 am (Cardiology Appt: Dr Morel, May 31, 2022 @ 8:45) Kat Salas DO [Primary Care Provider] - Diet: Regular and Low Sodium (2gm) Addtl Attending Provider Instructions: ACTIVITY RECOMMENDATIONS: Excess manipulation of the wrist should be avoided for the next 24-48 hours. * No lifting over 2 pounds (approximately a 1/2 gallon of milk) with the utilized arm for 24 hours. * No strenuous activity such as bowling or tennis for 3 days. * Keep the site of the procedure covered with a bandage for 24 hours. *You may shower the day after the procedure. Do not take a tub bath or submerge the puncture site in water for the next 3 days. *Do not operate any motorized equipment for 3 days. SPECIAL CARE INSTRUCTIONS: The site may be slightly bruised and sore following your procedure. Should any of the following occur, contact the DrPhilip who performed your procedure. 1. Redness/inflammation, swelling, chills, or fever, or colored drainage at procedure site within 3-7 days after your procedure. 2. Coldness, discoloration, ongoing numbness, severe pain, or swelling. Expect mild tingling of hand and tenderness at the puncture site for up to three days. If this persists beyond three days, or other symptoms develop, notify the DrPhilip who performed your procedure. BLEEDING: If the procedure site on your wrist begins to bleed, do not panic 1. Place 1 or 2 fingers firmly just slightly above the insertion site to stop the bleeding. You may be able to feel your pulse as you hold pressure. 2. Lift your finger after 5 minutes to see if the bleeding has stopped. 3. Once the bleeding has stopped, gently wipe the wrist area clean with a bandage. * If the bleeding from your wrist does not stop after 10 minutes, or if there is a large amount of bleeding or spurting, call 911 (do not drive yourself to the hospital). SKIN IRRITATION: * You may experience some redness and/or swelling in the area where radiation was administered. If any skin irritation occurs, please contact your family physician. FOLLOW UP VISIT: 1. Follow up with Dr. Morel at [facility] – [place], [place] cardiology office on 05/31/2022 at 0845 AM. 2. Keep any scheduled doctor appointments. Pending Studies at Discharge: No Stand-Alone Forms: My [facility], Smoking Cessation Medications and DC Order Prescriptions: New atorvastatin 40 mg Tablet 40 mg PO HS 30 Days Qty: 30 0RF aspirin 81 mg Tablet,Delayed Release (Dr/Ec) 81 mg PO QAM 30 Days Qty: 30 0RF metoprolol succinate 25 mg Tablet Extended Release 24 Hr 25 mg PO QAM 30 Days Qty: 30 0RF lisinopril 2.5 mg Tablet 2.5 mg PO QAM 30 Days Qty: 30 0RF Discharge Orders: Discharge Order (Routine); Ordered 05/19/22 Ordered By: Anjum Alford Admission Data Admit Date/Time: 05/17/22 16:20 Attending Provider: Anjum Alford Admit Provider: Anjum Alford Primary Care Provider: Kat Salas Other Providers: Davi Mcmillan ; Tariq Morel Coding Level of Care Code 51546 INP/OBS DISCH >30 MIN Diagnoses Acute non-ST elevation myocardial infarction (NSTEMI) I21.4 Cardiomyopathy I42.9 Elevated troponin I level R77.8 Time Spent (min) 35
--- NOTE | 2022-05-19 17:25 | XCELERA ---
[id number]
--- NOTE | 2022-05-19 23:44 | Electrocardiogram Report ---
Test Reason : Blood Pressure : / mmHG Vent. Rate : 083 BPM Atrial Rate : 083 BPM P-R Int : 172 ms QRS Dur : 084 ms QT Int : 408 ms P-R-T Axes : 033 -32 123 degrees QTc Int : 480 ms Normal sinus rhythm Possible Left atrial enlargement Left axis deviation Septal infarct , age undetermined Inferior infarct , age undetermined T wave abnormality, consider anterior ischemia Prolonged QT Abnormal ECG When compared with ECG of 27-MAY-1999 18:16, Septal infarct is now Present Nonspecific T wave abnormality no longer evident in Inferior leads T wave inversion now evident in Anterolateral leads Confirmed by Tariq Morel ([id number]) on 05/19/2022 11:44:03 PM Referred By: Confirmed By:Tariq Morel
--- NOTE | 2022-05-20 01:47 | Electrocardiogram Report ---
Test Reason : Blood Pressure : / mmHG Vent. Rate : 082 BPM Atrial Rate : 082 BPM P-R Int : 186 ms QRS Dur : 088 ms QT Int : 436 ms P-R-T Axes : 051 -46 119 degrees QTc Int : 509 ms Normal sinus rhythm with sinus arrhythmia Left anterior fascicular block Inferior infarct (cited on or before 17-MAY-2022) T wave abnormality, consider anterior ischemia Prolonged QT Abnormal ECG When compared with ECG of 17-MAY-2022 14:29, QT has lengthened Confirmed by Tariq Morel ([id number]) on 05/20/2022 1:47:24 AM Referred By: Kat Salas Confirmed By:Tariq Morel
== END 2022-05-19 13:27 | disposition home or self-care (01) | DRG 287 ==
LOC: ED 14:13 → 2E 16:20